=== PATIENT | male | born 1985 | race Caucasian/White ===

== ENCOUNTER 2016-06-27 02:53 | Emergency (ER) | payer SELFPAY ==
[~2016-06-27] VITALS: Ht 177.8 cm; Wt 99.8 kg
[~2016-06-27 02:53] MED LIST: FOLI1TAB16 PO; METO25TA4 PO; QUET200T PO; THIA100T8 PO; VENTOLIN HFA18 GM INH
[2016-06-27 03:53] LABS: BASO # 0.1 x10^3/uL (0.0-0.2); BASO % 2 % (0-3); EOS % 3 % (0-3); HEMATOCRIT 45.2 % (39.0-53.0); HEMOGLOBIN 14.4 g/dL (13.0-17.5); LYMPH # 2.1 x10^3/uL (1.0-4.8); LYMPH % 42 % (24-48); MEAN CORPUSCULAR HEMOGLOBIN 24 pg (25-35); MEAN CORPUSCULAR HGB CONC 32 g/dL (31-37); MEAN CORPUSCULAR VOLUME 76 fL (79-100); MONO % 10 % (0-9); NEUT % 43 % (31-73); PLATELET COUNT 392 x10^3/uL (140-400); RED BLOOD COUNT 5.96 x10^6/uL (4.30-5.70); RED CELL DISTRIBUTION WIDTH 20.7 % (11.5-14.5); WHITE BLOOD COUNT 4.9 x10^3/uL (4.0-11.0)
[2016-06-27 03:55] LABS: BILIRUBIN,URINE NEGATIVE (NEG); GLUCOSE,URINE NEGATIVE (NEG); NITRITE,URINE NEGATIVE (NEG); PH,URINE 6.5; PROTEIN,URINE NEGATIVE (NEG-TRACE); UROBILINOGEN,URINE 0.2 mg/dL (0.2 mg/dL)
[2016-06-27] MEDS ORDERED: LIDO:MAALOX:DONNATAL 1:1:1 15 ML SINGLE DOSE SWSW ONE (04:00)
[2016-06-27] MEDS ORDERED: PANTOPRAZOLE IV PUSH 40 MG VIAL. IVP ONE (04:00)
[2016-06-27] MEDS ORDERED: ONDANSETRON PF 4 MG/2 ML VIAL. IV ONE (04:00)
[2016-06-27] MEDS ORDERED: IV NORMAL SALINE 1000ML BAG 1,000 ML IV SCH (04:00)
[2016-06-27] MEDS: MORPHINE SULFATE 4 MG/ML DISP.SYRIN. IV/SQ PRN ×3 (04:04→04:46)
[2016-06-27 04:07] LABS: BACTERIA,URINE 0 /HPF (0-FEW); SQUAMOUS EPITHELIAL CELL,UR OCC /LPF; WBC,URINE OCC /HPF (0-4)
[2016-06-27 04:12] LABS: CALCIUM 9.1 mg/dL (8.5-10.1); CREATININE 0.9 mg/dL (0.7-1.3); GFR 99.1; POTASSIUM 4.7 mmol/L (3.5-5.1)
[2016-06-27 04:18] LABS: TOTAL BILIRUBIN 0.3 mg/dL (0.2-1.0); TOTAL PROTEIN 7.9 g/dL (6.4-8.2)
[2016-06-27 04:28] LABS: CKMB INDEX 0.7 % (0-4); CKMB MASS 0.7 ng/mL (0.0-3.6)
--- NOTE | 2016-06-27 05:03 | PHYS DOC ---
Past Medical History Past Medical History: GERD Additional Past Medical Histor: hemorrhoid, barretts esophagous Past Surgical History: Other Additional Past Surgical Histo: hemorrhoidectomy, left ankle, left collar bone Alcohol Use: Heavy Drug Use: Amphetamine, Benzodiazepine, Cocaine, Heroin, Marijuana, Methamphetamine, Opiates Adult General Chief Complaint Chief Complaint: NAUSEA/VOMITING/DIARRHA HPI HPI Patient is a 31 year old male who presents with complaint of nausea, vomiting, abdominal pain, and right-sided chest pain. The patient states that his symptoms have been present for the past week. Patient states that he has history of Mc's esophagus and is on twice daily omeprazole therapy. Patient also has history of polysubstance abuse and alcoholism. Patient states that he drank a large amount of vodka prior to symptom onset. Patient states that he tried to treat his symptoms at home with omeprazole, however the patient has not been able to tolerate any oral medications over the past several days. The patient states that he has been having worsening right-sided chest pain after having multiple episodes of vomiting. Patient rates pain currently as 8 out of 10. Patient denies any hematemesis or bloody stools. Review of Systems Review of Systems Constitutional: Denies fever or chills [] Eyes: Denies change in visual acuity, redness, or eye pain [] HENT: Denies nasal congestion or sore throat [] Respiratory: Denies cough or shortness of breath [] Cardiovascular: Right-sided chest pain [] GI: Abdominal pain, nausea, vomiting [] : Denies dysuria or hematuria [] Musculoskeletal: Denies back pain or joint pain [] Integument: Denies rash or skin lesions [] Neurologic: Denies headache, focal weakness or sensory changes [] Endocrine: Denies polyuria or polydipsia [] Current Medications Current Medications Current Medications Medications (Trade) Dose Ordered Sig/Khadijah Start Time Stop Time Status Last Admin Dose Admin Al Hydroxide/Mg Hydroxide (Mylanta Plus Xs) 30 ml 1X ONCE 06/27/16 05:30 06/27/16 05:32 DC 06/27/16 05:28 30 ML Morphine Sulfate 4 mg 4 mg PRN Q15MIN PRN 06/27/16 03:30 06/28/16 03:29 06/27/16 04:46 4 MG Multi-Ingredient Mouthwash/Gargle (Gi Cocktail Single Dose) 15 ml 1X ONCE 06/27/16 04:00 06/27/16 04:01 DC 06/27/16 03:58 15 ML Ondansetron HCl (Zofran) 4 mg 1X ONCE 06/27/16 04:00 06/27/16 04:01 DC 06/27/16 03:50 4 MG Pantoprazole Sodium (Protonix Vial) 40 mg 1X ONCE 06/27/16 04:00 06/27/16 04:01 DC 06/27/16 03:55 40 MG Sodium Chloride (Iv Sodium Chloride 0.9% 1000ml Bag) 1,000 ml @ 1,000 mls/hr Q1H 06/27/16 04:00 06/27/16 04:59 DC 06/27/16 04:01 1,000 MLS/HR Allergies Allergies Allergies Coded Allergies Type Severity Reaction Last Updated Verified No Known Drug Allergies 01/26/16 No Physical Exam Physical Exam Constitutional: Alert, afebrile, actively vomiting. [] HENT: Normocephalic, atraumatic, bilateral external ears normal, oropharynx moist, no oral exudates, nose normal. [] Eyes: PERRLA, EOMI, conjunctiva normal, no discharge. [] Neck: Normal range of motion, no tenderness, supple, no stridor. [] Cardiovascular: Tachycardia, regular rhythm, no murmur [] Lungs & Thorax: Bilateral breath sounds clear to auscultation , right-sided chest wall tenderness to palpation causing reproducible pain[] Abdomen: Bowel sounds normal, soft, epigastric tenderness palpation, no masses, no pulsatile masses. [] Skin: Warm, dry, no erythema, no rash. [] Back: No tenderness, no CVA tenderness. [] Extremities: No tenderness, no cyanosis, no clubbing, ROM intact, no edema. [] Neurologic: Alert and oriented X 3, normal motor function, normal sensory function, no focal deficits noted. [] Current Patient Data Vital Signs Vital Signs Date Time Temp Pulse Resp B/P Pulse Ox O2 Delivery O2 Flow Rate FiO2 06/27/16 04:46 24 97 06/27/16 04:00 104 132/100 Room Air 06/27/16 03:10 98.0 98.0 Lab Values Laboratory Tests Test 06/27/16 03:22 06/27/16 03:45 White Blood Count 4.9x10^3/uL (4.0-11.0) Red Blood Count 5.96x10^6/uL (4.30-5.70) H Hemoglobin 14.4g/dL (13.0-17.5) Hematocrit 45.2% (39.0-53.0) Mean Corpuscular Volume 76fL (79-100) L Mean Corpuscular Hemoglobin 24pg (25-35) L Mean Corpuscular Hemoglobin Concent 32g/dL (31-37) Red Cell Distribution Width 20.7% (11.5-14.5) H Platelet Count 392x10^3/uL (140-400) Neutrophils (%) (Auto) 43% (31-73) Lymphocytes (%) (Auto) 42% (24-48) Monocytes (%) (Auto) 10% (0-9) H Eosinophils (%) (Auto) 3% (0-3) Basophils (%) (Auto) 2% (0-3) Neutrophils # (Auto) 2.1x10^3uL (1.8-7.7) Lymphocytes # (Auto) 2.1x10^3/uL (1.0-4.8) Monocytes # (Auto) 0.5x10^3/uL (0.0-1.1) Eosinophils # (Auto) 0.1x10^3/uL (0.0-0.7) Basophils # (Auto) 0.1x10^3/uL (0.0-0.2) Platelet Estimate Pending Sodium Level 144mmol/L (136-145) Potassium Level 4.7mmol/L (3.5-5.1) Chloride Level 105mmol/L (98-107) Carbon Dioxide Level 24mmol/L (21-32) Anion Gap 15 (6-14) H Blood Urea Nitrogen 11mg/dL (8-26) Creatinine 0.9mg/dL (0.7-1.3) Estimated GFR (Cockcroft-Gault) 99.1 BUN/Creatinine Ratio 12 (6-20) Glucose Level 122mg/dL (70-99) H Calcium Level 9.1mg/dL (8.5-10.1) Total Bilirubin 0.3mg/dL (0.2-1.0) Aspartate Amino Transferase (AST) 44U/L (15-37) H Alanine Aminotransferase (ALT) 45U/L (16-63) Alkaline Phosphatase 113U/L (46-116) Creatine Kinase 97U/L (39-308) Creatine Kinase MB (Mass) 0.7ng/mL (0.0-3.6) Creatine Kinase MB Relative Index 0.7% (0-4) Troponin I Quantitative < 0.017ng/mL (0.000-0.055) Total Protein 7.9g/dL (6.4-8.2) Albumin 4.0g/dL (3.4-5.0) Albumin/Globulin Ratio 1.0 (1.0-1.7) Lipase 88U/L (73-393) Urine Collection Type Unknown Urine Color Yellow Urine Clarity Clear Urine pH 6.5 Urine Specific [place] 1.020 Urine Protein Negativemg/dL (NEG-TRACE) Urine Glucose (UA) Negativemg/dL (NEG) Urine Ketones (Stick) Tracemg/dL (NEG) Urine Blood Negative (NEG) Urine Nitrite Negative (NEG) Urine Bilirubin Negative (NEG) Urine Urobilinogen Dipstick 0.2mg/dL (0.2 mg/dL) Urine Leukocyte Esterase Negative (NEG) Urine RBC 3-5/HPF (0-2) Urine WBC Occ/HPF (0-4) Urine Squamous Epithelial Cells Occ/LPF Urine Bacteria 0/HPF (0-FEW) Urine Hyaline Casts Few/HPF Urine Mucus Marked/LPF Laboratory Tests 06/27/16 03:22 Laboratory Tests 06/27/16 03:22 EKG EKG Interpreted by me: Heart rate 105, sinus tachycardia, normal intervals, normal axis, no acute ST/T-wave abnormalities present [] Radiology/Procedures Radiology/Procedures 3 view acute abdominal series interpreted by me: No pulmonary infiltrates or effusions, nonobstructive bowel gas pattern, no free air under the diaphragm. [] Course & Med Decision Making Course & Med Decision Making Pertinent Labs and Imaging studies reviewed. (See chart for details) Patient was given IV fluids, Zofran, Protonix, GI cocktail, and morphine. On reevaluation, patient's symptoms have improved at this time. 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 Patient states that he is set up for endoscopy in the next 10 days. The patient was prescribed Nicholson and Zofran for continued control symptoms. Patient was counseled on refraining from any further alcohol use as this will very likely continue to cause worsening symptoms to the patient's condition. Advised return emergency department for any worsening symptoms. Patient voiced understanding and in agreement with treatment plan. Dragon Disclaimer Dragon Disclaimer This electronic medical record was generated, in whole or in part, using a voice recognition dictation system. Departure Departure Impression: Primary Impression: Epigastric abdominal pain Disposition: HOME, SELF-CARE Condition: IMPROVED Referrals: NO PCP (PCP) Patient Instructions: Abdominal Pain Additional Instructions: Follow-up with your help desk intern in the next 7 days. Return to the emergency department for any worsening symptoms. Scripts Ondansetron Hcl (Zofran)4 Mg Tablet1 Tab PO Q6HRS PRN NAUSEA/VOMITING #20 TAB Prov:FRANCISCO ELLSWORTH MD 06/27/16 Hydrocodone/Apap 5-325 (Nicholson 5-325 Tablet)1 Each Tablet1 Tab PO Q6HRS PRN PAIN #20 TAB Prov:FRANCISCO ELLSWORTH MD 06/27/16 FRANCISCO ELLSWORTH MD Jun 27, 2016 05:03
[2016-06-27] MEDS ORDERED: MAG HYDROX/AL HYDROX/SIMETH 30 ML ORAL.SUSP PO ONE (05:30)
[2016-06-27] MEDS ORDERED: HYDR-971 PO (05:38)
[2016-06-27] MEDS ORDERED: ONDA4TAB7 PO (05:38)
[2016-06-27 06:00] VITALS: BP 134/85
--- NOTE | 2016-06-27 06:32 | EKG ---
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
--- NOTE | 2016-06-27 07:34 | RAD ---
Indication abdominal pain and vomiting. A single view of the chest was obtained as well as flat and upright films of the abdomen. Note is made of a similar series of films 05/23/2016. The heart and pulmonary vessels appear normal. The lungs are clear. There is no pleural fluid or pneumothorax. The appearance of the chest is not changed substantially relative to the previous exam. There is no free air. The abdominal gas pattern is normal. No organomegaly or abnormal calculi are seen. IMPRESSION: No acute finding seen in the chest or abdomen on plain films
[2016-06-27 11:43] LABS: ANISOCYTOSIS MOD; HYPOCHROMIA SLIGHT
[2016-06-27 11:44] LABS: OVALOCYTES OCC
[2016-06-27 13:53] LABS: PLT ESTIMATE ADEQUATE (ADEQUATE)
[2016-07-01] MEDS ORDERED: SUCR1TAB29 PO (03:25)
[2016-07-01] MEDS ORDERED: FAMO-63 PO (03:25)
== END 2016-06-27 06:00 | disposition home or self-care (01) ==
LOC: ER 02:53
DX: R10.13 Epigastric pain (principal); R11.2 Nausea with vomiting, unspecified; R00.0 Tachycardia, unspecified; R07.89 Other chest pain; K21.9 Gastro-esophageal reflux disease without esophagitis; F15.10 Other stimulant abuse, uncomplicated; F13.10 Sedative, hypnotic or anxiolytic abuse, uncomplicated; F14.10 Cocaine abuse, uncomplicated; F11.10 Opioid abuse, uncomplicated; F12.10 Cannabis abuse, uncomplicated; F10.10 Alcohol abuse, uncomplicated; Z87.19 Personal history of other diseases of the digestive system
CPT/HCPCS: 36415; 74022; 80053; 81001; 82553; 83690; 84484; 85007; 85027; 93005; 96361; 96374; 96375; 96376; 99285; C9113; J2270; J2405; J7030

== ENCOUNTER 2016-07-22 06:14 | Emergency (ER) | payer SELFPAY ==
[~2016-07-22] VITALS: Ht 177.8 cm; Wt 99.8 kg
[~2016-07-22 06:14] MED LIST changes: +FAMO-63 PO; +HYDR-971 PO; +ONDA4TAB7 PO; +SUCR1TAB29 PO
[2016-07-22] MEDS ORDERED: AMMONIA AROMATIC 15% INHALANT AMPUL. ONE (06:15)
[2016-07-22] MEDS ORDERED: NALOXONE 0.4 MG/ML VIAL. ONE (06:15)
[2016-07-22] MEDS ORDERED: IV NORMAL SALINE 1000ML BAG 1,000 ML IV ONE (06:30)
[2016-07-22] MEDS ORDERED: NALOXONE 0.4 MG/ML VIAL. IV ONE (06:30)
[2016-07-22 06:46] LABS: CALCIUM 8.6 mg/dL (8.5-10.1); CREATININE 0.7 mg/dL (0.7-1.3); GFR 132.4; POTASSIUM 4.1 mmol/L (3.5-5.1)
[2016-07-22 06:47] LABS: BASO # 0.1 x10^3/uL (0.0-0.2); BASO % 1 % (0-3); EOS % 5 % (0-3); HEMATOCRIT 43.2 % (39.0-53.0); HEMOGLOBIN 13.9 g/dL (13.0-17.5); LYMPH % 44 % (24-48); MEAN CORPUSCULAR HEMOGLOBIN 25 pg (25-35); MEAN CORPUSCULAR HGB CONC 32 g/dL (31-37); MEAN CORPUSCULAR VOLUME 79 fL (79-100); MONO % 12 % (0-9); NEUT % 38 % (31-73); PLATELET COUNT 369 x10^3/uL (140-400); RED BLOOD COUNT 5.46 x10^6/uL (4.30-5.70); RED CELL DISTRIBUTION WIDTH 20.3 % (11.5-14.5); WHITE BLOOD COUNT 4.5 x10^3/uL (4.0-11.0)
--- NOTE | 2016-07-22 06:50 | EKG ---
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
--- NOTE | 2016-07-22 06:50 | RAD ---
PROCEDURE CT head without contrast. HISTORY Altered mental status, unresponsive. Drug and ETOH use. TECHNIQUE Helical CT imaging of the brain is performed without IV contrast. PQRS: One or more the following individualized dose reduction techniques were utilized for the study: 1. Automated exposure control. 2. Adjustment of the mA and/or kV according to patient size. 3. Use of iterative reconstruction technique. COMPARISON None. FINDINGS There is no midline shift or mass effect. No extra-axial fluid collection or intraparenchymal hemorrhage. Quezada-white matter differentiation is preserved. Ventricles and sulci are normal for patient age. The visualized paranasal sinuses and mastoid air cells are clear. The globes and orbits appear intact. No acute calvarial abnormality. IMPRESSION No acute intracranial abnormality. Electronically signed by: Rodriguez Funk MD (Jul 22, 2016 06:49:27)
[2016-07-22 06:51] LABS: ALBUMIN 3.7 g/dL (3.4-5.0); ETHANOL 224 mg/dL (0-10); MAGNESIUM 2.1 mg/dL (1.8-2.4); TOTAL BILIRUBIN 0.1 mg/dL (0.2-1.0); TOTAL PROTEIN 7.4 g/dL (6.4-8.2)
[2016-07-22] MEDS ORDERED: MVI, ADULT NO.4 WITH VIT K 10 ML, FOLIC ACID 1 MG, THIAMINE 100 MG in IV NORMAL SALINE ... IV ONE ×4 (07:00)
[2016-07-22] MEDS ORDERED: MVI, ADULT NO.4 WITH VIT K 10 ML, FOLIC ACID 1 MG, THIAMINE 100 MG in IV NORMAL SALINE ... IV SCH ×4 (07:00)
--- NOTE | 2016-07-22 07:11 | RAD ---
Portable chest, 07/22/2016: History: Syncope The depth of inspiration is suboptimal. The heart is at the upper limits of normal in size. There is a retrocardiac mass compatible with a small hiatal hernia. The pulmonary vascularity is normal. No pulmonary infiltrates are seen. There is no evidence of pleural fluid. IMPRESSION: 1. Small hiatal hernia. 2. Suboptimal inspiration.
[2016-07-22 07:20] VITALS: BP 134/102
--- NOTE | 2016-07-22 07:22 | PHYS DOC ---
Past Medical History Past Medical History: Alcoholism, GERD Additional Past Medical Histor: hemorrhoid, barretts esophagous Past Surgical History: Other Additional Past Surgical Histo: hemorrhoidectomy, left ankle, left collar bone Alcohol Use: Heavy Drug Use: Amphetamine, Benzodiazepine, Cocaine, Heroin, Marijuana, Methamphetamine, Opiates Adult General Chief Complaint Chief Complaint: ALTERED MENTAL STATUS HPI HPI Patient is a 31 year old male who presents with altered mental status. The patient was brought to the emergency department by his father due to complaints of abdominal pain. The patient however became unresponsive in route and patient was brought to the trauma bay in a stretcher. Patient has reported history of alcohol and drug abuse. The patient does not provide any history currently. Father states that the patient has had problems with abdominal pain due to use of alcohol. Attempts at sternal rub and ammonium salts cause patient only to open eyes and have slight grimace. Review of Systems Review of Systems Unable to obtain Current Medications Current Medications Current Medications Medications (Trade) Dose Ordered Sig/Khadijah Start Time Stop Time Status Last Admin Dose Admin Multi-Ingredient Mouthwash/Gargle (Gi Cocktail Single Dose) 15 ml 1X ONCE 07/22/16 07:30 07/22/16 07:31 DC 07/22/16 07:26 15 ML Multivitamins/ Minerals 10 ml/ Folic Acid 1 mg/ Thiamine HCl 100 mg/Sodium Chloride 1,011.2 ml @ 1,000 mls/ hr Q1H 07/22/16 07:00 07/22/16 07:00 DC Multivitamins/ Minerals/Folic Acid/Thiamine HCl/ Sodium Chloride (Infuvite Adult/ Iv Sodium Chloride 0.9% 1000ml Bag) 1,011.2 ml @ 1,000 mls/ hr ONCE ONCE 07/22/16 07:00 07/22/16 08:00 DC 07/22/16 07:07 1,000 MLS/HR Naloxone HCl 0.4 mg 0.4 mg 1X ONCE 07/22/16 06:30 07/22/16 06:31 DC 07/22/16 06:18 0.4 MG Sodium Chloride 1,000 ml @ 1,000 mls/hr 1X ONCE 07/22/16 06:30 07/22/16 07:29 DC 07/22/16 06:55 1,000 MLS/HR Allergies Allergies Allergies Coded Allergies Type Severity Reaction Last Updated Verified No Known Drug Allergies 01/26/16 No Physical Exam Physical Exam Constitutional: Obtunded, minimal response to painful stimulus, protecting airway, attempts to close eyes when forced open. [] HENT: Normocephalic, atraumatic, bilateral external ears normal, oropharynx dry , no oral exudates, nose normal. [] Eyes: PERRLA, conjunctiva normal, no discharge. [] Neck: Normal range of motion, no tenderness, supple, no stridor. [] Cardiovascular:Heart rate regular rhythm, no murmur [] Lungs & Thorax: Bilateral breath sounds clear to auscultation [] Abdomen: Bowel sounds normal, soft, no tenderness, no masses, no pulsatile masses. [] Skin: Warm, dry, no erythema, no rash. [] Back: No tenderness, no CVA tenderness. [] Extremities: No tenderness, no cyanosis, no clubbing, ROM intact, no edema. [] Neurologic: Obtunded, does not follow commands, minimal response to painful stimulus, deep tendon reflexes intact. [] Current Patient Data Vital Signs Vital Signs Date Time Temp Pulse Resp B/P Pulse Ox O2 Delivery O2 Flow Rate FiO2 07/22/16 07:20 82 20 134/102 97 07/22/16 06:32 97.3 Room Air 97.3 Lab Values Laboratory Tests Test 07/22/16 06:17 07/22/16 06:22 07/22/16 06:25 Glucose (Fingerstick) 114mg/dL (70-99) H White Blood Count 4.5x10^3/uL (4.0-11.0) Red Blood Count 5.46x10^6/uL (4.30-5.70) Hemoglobin 13.9g/dL (13.0-17.5) Hematocrit 43.2% (39.0-53.0) Mean Corpuscular Volume 79fL (79-100) Mean Corpuscular Hemoglobin 25pg (25-35) Mean Corpuscular Hemoglobin Concent 32g/dL (31-37) Red Cell Distribution Width 20.3% (11.5-14.5) H Platelet Count 369x10^3/uL (140-400) Neutrophils (%) (Auto) 38% (31-73) Lymphocytes (%) (Auto) 44% (24-48) Monocytes (%) (Auto) 12% (0-9) H Eosinophils (%) (Auto) 5% (0-3) H Basophils (%) (Auto) 1% (0-3) Neutrophils # (Auto) 1.7x10^3uL (1.8-7.7) L Lymphocytes # (Auto) 2.0x10^3/uL (1.0-4.8) Monocytes # (Auto) 0.5x10^3/uL (0.0-1.1) Eosinophils # (Auto) 0.2x10^3/uL (0.0-0.7) Basophils # (Auto) 0.1x10^3/uL (0.0-0.2) Platelet Estimate Pending Sodium Level 146mmol/L (136-145) H Potassium Level 4.1mmol/L (3.5-5.1) Chloride Level 108mmol/L (98-107) H Carbon Dioxide Level 26mmol/L (21-32) Anion Gap 12 (6-14) Blood Urea Nitrogen 8mg/dL (8-26) Creatinine 0.7mg/dL (0.7-1.3) Estimated GFR (Cockcroft-Gault) 132.4 BUN/Creatinine Ratio 11 (6-20) Glucose Level 104mg/dL (70-99) H Lactic Acid Level 1.4mmol/L (0.4-2.0) Calcium Level 8.6mg/dL (8.5-10.1) Magnesium Level 2.1mg/dL (1.8-2.4) Total Bilirubin 0.1mg/dL (0.2-1.0) L Aspartate Amino Transferase (AST) 25U/L (15-37) Alanine Aminotransferase (ALT) 30U/L (16-63) Alkaline Phosphatase 92U/L (46-116) Ammonia 49mcmol/L (11-34) H Total Protein 7.4g/dL (6.4-8.2) Albumin 3.7g/dL (3.4-5.0) Albumin/Globulin Ratio 1.0 (1.0-1.7) Salicylates Level < 2.8mg/dL (2.8-20.0) L Salicylate Last Dose Date Unknown Salicylate Last Dose Time Unknown Acetaminophen Level 3.55mcg/ml (10-30) L Acetaminophen Last Dose Date Unknown Acetaminophen Last Dose Time Unknown Ethyl Alcohol Level 224mg/dL (0-10) H Urine Collection Type Unknown Urine Color Yellow Urine Clarity Clear Urine pH 6.0 Urine Specific [place] 1.025 Urine Protein 30mg/dL (NEG-TRACE) Urine Glucose (UA) Negativemg/dL (NEG) Urine Ketones (Stick) Negativemg/dL (NEG) Urine Blood Large (NEG) Urine Nitrite Negative (NEG) Urine Bilirubin Negative (NEG) Urine Urobilinogen Dipstick 0.2mg/dL (0.2 mg/dL) Urine Leukocyte Esterase Negative (NEG) Urine RBC 20-40/HPF (0-2) Urine WBC 0/HPF (0-4) Urine Squamous Epithelial Cells Occ/LPF Urine Bacteria 0/HPF (0-FEW) Urine Hyaline Casts Few/HPF Urine Mucus Marked/LPF Urine Opiates Screen Neg (NEG) Urine Methadone Screen Neg (NEG) Urine Barbiturates Neg (NEG) Urine Phencyclidine Screen Neg (NEG) Urine Amphetamine/Methamphetamine Neg (NEG) Urine Benzodiazepines Screen Neg (NEG) Urine Cocaine Screen Neg (NEG) Urine Cannabinoids Screen Pos (NEG) Urine Ethyl Alcohol Pos (NEG) Laboratory Tests 07/22/16 06:22 Laboratory Tests 07/22/16 06:22 EKG EKG Interpreted by me: Heart rate 91, sinus rhythm, normal intervals, normal axis, no acute ST/T-wave abnormalities present [] Radiology/Procedures Radiology/Procedures [facility] [address] [place] [address] IMAGING REPORT Signed PATIENT: EDDA GREEN ACCOUNT: [id number] : 1985 LOCATION: ER AGE: 31 SEX: M EXAM STATUS: REG ER ORD. PHYSICIAN: FRANCISCO ELLSWORTH MD REASON: syncope, rule out acute cardiopulmonary abnormality PROCEDURE: PORTABLE CHEST 1V Portable chest, 07/22/2016: History: Syncope The depth of inspiration is suboptimal. The heart is at the upper limits of normal in size. There is a retrocardiac mass compatible with a small hiatal hernia. The pulmonary vascularity is normal. No pulmonary infiltrates are seen. There is no evidence of pleural fluid. IMPRESSION: 1. Small hiatal hernia. 2. Suboptimal inspiration. DICTATED and SIGNED BY: SUMA MAJANO MD DATE: 07/22/16 08 CC: FRANCISCO ELLSWORTH MD; NO PCP ~ [facility] [address] [place] [address] IMAGING REPORT Signed PATIENT: EDDA GREEN ACCOUNT: [id number] : 1985 LOCATION: ER AGE: 31 SEX: M EXAM STATUS: PRE ER ORD. PHYSICIAN: FRANCISCO ELLSWORTH MD REASON: altered mental status PROCEDURE: HEAD WO CONTRAST PROCEDURE CT head without contrast. HISTORY Altered mental status, unresponsive. Drug and ETOH use. TECHNIQUE Helical CT imaging of the brain is performed without IV contrast. PQRS: One or more the following individualized dose reduction techniques were utilized for the study: 1. Automated exposure control. 2. Adjustment of the mA and/or kV according to patient size. 3. Use of iterative reconstruction technique. COMPARISON None. FINDINGS There is no midline shift or mass effect. No extra-axial fluid collection or intraparenchymal hemorrhage. Quezada-white matter differentiation is preserved. Ventricles and sulci are normal for patient age. The visualized paranasal sinuses and mastoid air cells are clear. The globes and orbits appear intact. No acute calvarial abnormality. IMPRESSION No acute intracranial abnormality. Electronically signed by: Rodriguez Funk MD (Jul 22, 2016 06:49:27) DICTATED and SIGNED BY: RODRIGUEZ FUNK MD DATE: 07/22/16 0649 CC: FRANCISCO ELLSWORTH MD; NO PCP ~ [] Course & Med Decision Making Course & Med Decision Making Pertinent Labs and Imaging studies reviewed. (See chart for details) The patient underwent CT and chest x-ray imaging which did not reveal any acute abnormalities. The patient spontaneously awoke in the emergency department and requested GI cocktail for treatment of patient's abdominal pain. On chart review , this patient has been seen on multiple visits for treatment of abdominal pain. Alcohol level was 224. I spent approximately 10-15 minutes providing counseling to both patient and patient's father regarding discontinuing use of alcohol as this is the primary cause of patient's symptoms and explained to both the patient and his father that this will continue to be destructive to the patient's well-being. Dragon Disclaimer Dragon Disclaimer This electronic medical record was generated, in whole or in part, using a voice recognition dictation system. Departure Departure Impression: Primary Impression: Epigastric abdominal pain Disposition: HOME, SELF-CARE Condition: IMPROVED Referrals: NO PCP (PCP) Patient Instructions: Abdominal Pain (Nonspecific), Alcohol Problems Additional Instructions: Your abdominal pain stems from your daily heavy alcohol use. This will continue to cause you harmful symptoms not only as it pertains to your abdomen but your overall well-being. It is strongly recommended that you seek help to discontinue use of alcohol. Continue on twice daily Pepcid for your gastritis. Return to the emergency department for any worsening symptoms. FRANCISCO ELLSWORTH MD Jul 22, 2016 07:22
[2016-07-22] MEDS ORDERED: LIDO:MAALOX:DONNATAL 1:1:1 15 ML SINGLE DOSE SWSW ONE (07:30)
[2016-07-22 07:42] LABS: BARBITURATES NEG (NEG); BENZODIAZEPINES NEG (NEG); CANNABINOIDS POS (NEG); COCAINE NEG (NEG); METHADONE NEG (NEG); OPIATES NEG (NEG); PHENCYCLIDINE NEG (NEG)
[2016-07-22 07:43] LABS: ETHANOL, URINE POS (NEG)
[2016-07-22 07:53] LABS: BILIRUBIN,URINE NEGATIVE (NEG); GLUCOSE,URINE NEGATIVE (NEG); NITRITE,URINE NEGATIVE (NEG); PROTEIN,URINE 30 mg/dL (NEG-TRACE); UROBILINOGEN,URINE 0.2 mg/dL (0.2 mg/dL)
[2016-07-22 08:13] LABS: BACTERIA,URINE 0 /HPF (0-FEW); RBC,URINE 20-40 /HPF (0-2); SQUAMOUS EPITHELIAL CELL,UR OCC /LPF; WBC,URINE 0 /HPF (0-4)
[2016-07-22 08:31] LABS: PLT ESTIMATE ADEQUATE (ADEQUATE)
[2016-07-22 08:32] LABS: ANISOCYTOSIS MOD
== END 2016-07-22 08:40 | disposition home or self-care (01) ==
LOC: ER 06:14
DX: R10.13 Epigastric pain (principal); R41.82 Altered mental status, unspecified; K21.9 Gastro-esophageal reflux disease without esophagitis; F15.10 Other stimulant abuse, uncomplicated; F14.10 Cocaine abuse, uncomplicated; F10.10 Alcohol abuse, uncomplicated; F12.10 Cannabis abuse, uncomplicated; F11.10 Opioid abuse, uncomplicated; F19.10 Other psychoactive substance abuse, uncomplicated
CPT/HCPCS: 36415; 51702; 70450; 71010; 80053; 81001; 82140; 82947; 83605; 83735; 85007; 85027; 93005; 96365; 96374; 99285; G0480; G0481; G6038; J2310; J7030; 80196

== ENCOUNTER 2016-08-02 08:16 | Inpatient (IN) | payer SELFPAY ==
[~2016-08-02] VITALS: Ht 177.8 cm; Wt 100.7 kg
[2016-08-02] MEDS ORDERED: LORAZEPAM 1 MG TABLET. PO SCH (09:15)
[2016-08-02] MEDS ORDERED: MORPHINE SULFATE 2 MG/ML DISP.SYRIN. IV PRN (09:15)
[2016-08-02] MEDS ORDERED: ONDANSETRON PF 4 MG/2 ML VIAL. IV PRN (09:15)
[2016-08-02] MEDS: LORAZEPAM 1 MG TABLET. PO SCH ×3 (09:20→21:15)
[2016-08-02 09:28] LABS: BASO # 0.1 x10^3/uL (0.0-0.2); BASO % 2 % (0-3); EOS % 4 % (0-3); HEMATOCRIT 40.6 % (39.0-53.0); HEMOGLOBIN 13.3 g/dL (13.0-17.5); LYMPH # 1.9 x10^3/uL (1.0-4.8); LYMPH % 39 % (24-48); MEAN CORPUSCULAR HEMOGLOBIN 25 pg (25-35); MEAN CORPUSCULAR HGB CONC 33 g/dL (31-37); MEAN CORPUSCULAR VOLUME 78 fL (79-100); MONO % 12 % (0-9); NEUT % 44 % (31-73); PLATELET COUNT 385 x10^3/uL (140-400); RED BLOOD COUNT 5.21 x10^6/uL (4.30-5.70); RED CELL DISTRIBUTION WIDTH 20.5 % (11.5-14.5); WHITE BLOOD COUNT 4.8 x10^3/uL (4.0-11.0)
[2016-08-02] MEDS ORDERED: LIDO:MAALOX:DONNATAL 1:1:1 15 ML SINGLE DOSE SWSW ONE ×2 (09:30→15:00)
[2016-08-02] MEDS ORDERED: MVI, ADULT NO.4 WITH VIT K 10 ML, FOLIC ACID 1 MG, THIAMINE 100 MG in IV DEXTROSE 5%-LA... IV ONE ×4 (09:30)
[2016-08-02 09:36] LABS: BILIRUBIN,URINE NEGATIVE (NEG); GLUCOSE,URINE NEGATIVE (NEG); NITRITE,URINE NEGATIVE (NEG); PROTEIN,URINE NEGATIVE (NEG-TRACE); UROBILINOGEN,URINE 0.2 mg/dL (0.2 mg/dL)
[2016-08-02 09:53] LABS: ANION GAP 12 (6-14); BLOOD UREA NITROGEN 9 mg/dL (8-26); CALCIUM 8.6 mg/dL (8.5-10.1); CARBON DIOXIDE 25 mmol/L (21-32); CHLORIDE 108 mmol/L (98-107); CREATININE 0.8 mg/dL (0.7-1.3); GFR 113.5; GLUCOSE 117 mg/dL (70-99); POTASSIUM 3.7 mmol/L (3.5-5.1); SODIUM 145 mmol/L (136-145)
[2016-08-02 09:53] LABS: BARBITURATES NEG (NEG); BENZODIAZEPINES NEG (NEG); CANNABINOIDS NEG (NEG); COCAINE NEG (NEG); METHADONE NEG (NEG); OPIATES NEG (NEG); PHENCYCLIDINE NEG (NEG)
[2016-08-02 09:55] LABS: BACTERIA,URINE 0 /HPF (0-FEW); RBC,URINE 0 /HPF (0-2); SQUAMOUS EPITHELIAL CELL,UR OCC /LPF; WBC,URINE 0 /HPF (0-4)
[2016-08-02 09:56] LABS: ETHANOL, URINE POS (NEG)
[2016-08-02 09:57] LABS: ALBUMIN 3.6 g/dL (3.4-5.0); ALK PHOS 111 U/L (46-116); ALT (SGPT) 43 U/L (16-63); AST (SGOT) 43 U/L (15-37); DIRECT BILIRUBIN < 0.1 mg/dL (0.0-0.2); TOTAL BILIRUBIN 0.2 mg/dL (0.2-1.0); TOTAL PROTEIN 7.2 g/dL (6.4-8.2)
[2016-08-02 09:59] LABS: ETHANOL 250 mg/dL (0-10)
--- NOTE | 2016-08-02 10:19 | PHYS DOC ---
Past Medical History Past Medical History: Alcoholism, GERD Additional Past Medical Histor: hemorrhoid, barretts esophagous, drug use Past Surgical History: Other Additional Past Surgical Histo: hemorrhoidectomy, left ankle, left collar bone Alcohol Use: Heavy Drug Use: Amphetamine, Benzodiazepine, Cocaine, Heroin, Marijuana, Methamphetamine, Opiates Adult General Chief Complaint Chief Complaint: WITHDRAWL HPI HPI 31-year-old male presenting to the emergency department today after having seizure approximately 6 hours ago. He reports drinking approximately 2 L of vodka every day. Initially stated he did not want rehabilitation but after talking to him for a while he decided that he did want to stop drinking. He reports a history of alcohol withdrawal seizures including having one approximately 6 hours ago. He drinks since then a small amount of hard liquor. Onset today. Location brain. Duration intermittent. No alleviating factors. Nonradiating. Review of systems is negative for chest pain shortness of breath nausea vomiting fevers chills. He feels mildly anxious. All other review of systems is negative unless otherwise noted in history of present illness. Review of Systems Review of Systems SEE ABOVE. Current Medications Current Medications Current Medications Medications (Trade) Dose Ordered Sig/Khadijah Start Time Stop Time Status Last Admin Dose Admin Lorazepam (Ativan) 1 mg Q6H 08/02/16 09:15 08/03/16 15:16 08/02/16 09:20 1 MG Morphine Sulfate 2 mg PRN Q2HR PRN 08/02/16 09:15 08/03/16 09:14 Ondansetron HCl (Zofran) 4 mg PRN Q8HRS PRN 08/02/16 09:15 08/03/16 09:14 Allergies Allergies Allergies Coded Allergies Type Severity Reaction Last Updated Verified No Known Drug Allergies 01/26/16 No Physical Exam Physical Exam Constitutional: Well developed, well nourished, no acute distress, non-toxic appearance. HENT: Normocephalic, atraumatic, bilateral external ears normal, oropharynx moist, no oral exudates, nose normal. [] Eyes: PERRLA, EOMI, conjunctiva normal, no discharge. Neck: Normal range of motion, no tenderness, supple, no stridor. [] Cardiovascular:Heart rate regular rhythm, no murmur [] Lungs & Thorax: Bilateral breath sounds clear to auscultation Abdomen: Bowel sounds normal, soft, no tenderness, no masses, no pulsatile masses. [] Skin: Warm, dry, no erythema, no rash. Back: No tenderness, no CVA tenderness. [] Extremities: No tenderness, no cyanosis, no clubbing, ROM intact, no edema. Neurologic: Alert and oriented X 3, normal motor function, normal sensory function, no focal deficits noted. Psychologic: Affect normal, judgement normal, mood normal. [] Current Patient Data Vital Signs Vital Signs Date Time Temp Pulse Resp B/P Pulse Ox O2 Delivery O2 Flow Rate FiO2 08/02/16 08:34 98.1 100 20 146/98 96 Room Air 98.1 Lab Values Laboratory Tests Test 08/02/16 09:04 08/02/16 09:05 08/02/16 09:15 Sodium Level 145mmol/L (136-145) Potassium Level 3.7mmol/L (3.5-5.1) Chloride Level 108mmol/L (98-107) H Carbon Dioxide Level 25mmol/L (21-32) Anion Gap 12 (6-14) Blood Urea Nitrogen 9mg/dL (8-26) Creatinine 0.8mg/dL (0.7-1.3) Estimated GFR (Cockcroft-Gault) 113.5 Glucose Level 117mg/dL (70-99) H Calcium Level 8.6mg/dL (8.5-10.1) Total Bilirubin 0.2mg/dL (0.2-1.0) Direct Bilirubin < 0.1mg/dL (0.0-0.2) Aspartate Amino Transferase (AST) 43U/L (15-37) H Alanine Aminotransferase (ALT) 43U/L (16-63) Alkaline Phosphatase 111U/L (46-116) Total Protein 7.2g/dL (6.4-8.2) Albumin 3.6g/dL (3.4-5.0) Lipase 132U/L (73-393) White Blood Count 4.8x10^3/uL (4.0-11.0) Red Blood Count 5.21x10^6/uL (4.30-5.70) Hemoglobin 13.3g/dL (13.0-17.5) Hematocrit 40.6% (39.0-53.0) Mean Corpuscular Volume 78fL (79-100) L Mean Corpuscular Hemoglobin 25pg (25-35) Mean Corpuscular Hemoglobin Concent 33g/dL (31-37) Red Cell Distribution Width 20.5% (11.5-14.5) H Platelet Count 385x10^3/uL (140-400) Neutrophils (%) (Auto) 44% (31-73) Lymphocytes (%) (Auto) 39% (24-48) Monocytes (%) (Auto) 12% (0-9) H Eosinophils (%) (Auto) 4% (0-3) H Basophils (%) (Auto) 2% (0-3) Neutrophils # (Auto) 2.1x10^3uL (1.8-7.7) Lymphocytes # (Auto) 1.9x10^3/uL (1.0-4.8) Monocytes # (Auto) 0.6x10^3/uL (0.0-1.1) Eosinophils # (Auto) 0.2x10^3/uL (0.0-0.7) Basophils # (Auto) 0.1x10^3/uL (0.0-0.2) Platelet Estimate Pending Serum Osmolality 358mOsm/Kg (279-304) H Salicylates Level < 2.8mg/dL (2.8-20.0) L Salicylate Last Dose Date Salicylate Last Dose Time Acetaminophen Level < 2mcg/ml (10-30) L Acetaminophen Last Dose Date Acetaminophen Last Dose Time Ethyl Alcohol Level 250mg/dL (0-10) H Urine Collection Type Unknown Urine Color Yellow Urine Clarity Clear Urine pH 6.0 Urine Specific [place] 1.010 Urine Protein Negativemg/dL (NEG-TRACE) Urine Glucose (UA) Negativemg/dL (NEG) Urine Ketones (Stick) Negativemg/dL (NEG) Urine Blood Negative (NEG) Urine Nitrite Negative (NEG) Urine Bilirubin Negative (NEG) Urine Urobilinogen Dipstick 0.2mg/dL (0.2 mg/dL) Urine Leukocyte Esterase Negative (NEG) Urine RBC 0/HPF (0-2) Urine WBC 0/HPF (0-4) Urine Squamous Epithelial Cells Occ/LPF Urine Bacteria 0/HPF (0-FEW) Urine Opiates Screen Neg (NEG) Urine Methadone Screen Neg (NEG) Urine Barbiturates Neg (NEG) Urine Phencyclidine Screen Neg (NEG) Urine Amphetamine/Methamphetamine Neg (NEG) Urine Benzodiazepines Screen Neg (NEG) Urine Cocaine Screen Neg (NEG) Urine Cannabinoids Screen Neg (NEG) Urine Ethyl Alcohol Pos (NEG) Laboratory Tests 08/02/16 09:05 Laboratory Tests 08/02/16 09:04 EKG EKG [] Radiology/Procedures Radiology/Procedures [] Course & Med Decision Making Course & Med Decision Making Pertinent Labs and Imaging studies reviewed. (See chart for details) [] 31-year-old male presenting to the emergency department today desiring to be medically monitored during on-call withdrawal. He had a history of alcohol withdrawal seizures. Heart rate was 100. Blood pressure mildly elevated. Not shaking during examination. Otherwise vital signs were within normal limits. Blood work obtained. Oral Ativan given. CBC unremarkable. Urinalysis negative. Chemistry panel showed increased osmolality from alcohol and glucose. Patient does not have an osmolar gap. Acetaminophen and salicylate were negative. Patient was then admitted to our hospital for monitoring of alcohol withdrawal , further evaluation workup and care. Dragon Disclaimer Dragon Disclaimer This electronic medical record was generated, in whole or in part, using a voice recognition dictation system. Departure Departure Impression: Primary Impression: Alcohol drinker Additional Impressions: Alcohol withdrawal Alcohol withdrawal seizure Disposition: ADMITTED INPATIENT Admitting Physician: Rickey Osman Condition: STABLE Referrals: NO PCP (PCP) Problem Qualifiers NORBERTO FLORES MD Aug 02, 2016 10:19
[2016-08-02 10:45] VITALS: BP 146/103
[2016-08-02 10:45] LABS: ANISOCYTOSIS MOD; PLT ESTIMATE ADEQUATE (ADEQUATE)
[2016-08-02 11:19] VITALS: BP 146/103
--- NOTE | 2016-08-02 12:43 | PDOC1 ---
History and Physical Past Medical History Cardiovascular: No pertinent hx Pulmonary: Asthma CENTRAL NERVOUS SYSTEM: TIA GI: GERD, Hemorrhoids, Peptic Ulcer disease, Other Heme/Onc: No pertinent hx Hepatobiliary: No pertinent hx Psych: Other Rheumatologic: No pertinent hx Infectious disease: No pertinent hx Renal/: No pertinent hx Endocrine: No pertinent hx Past Surgical History Past Surgical History: Other Family History Family History: Coronary Artery Disease Social History ALCOHOL: heavy Drugs: Other Current Problem List Problem List Problems Medical Problems: (1) Alcohol drinker Status: Acute (2) Alcohol withdrawal Status: Acute (3) Alcohol withdrawal seizure Status: Acute Current Medications Current Medications Current Medications Medications (Trade) Dose Ordered Sig/Khadijah Start Time Stop Time Status Last Admin Dose Admin Lorazepam (Ativan) 1 mg Q6H 08/02/16 09:15 08/03/16 15:16 08/02/16 09:20 1 MG Morphine Sulfate 2 mg PRN Q2HR PRN 08/02/16 09:15 08/03/16 09:14 Multi-Ingredient Mouthwash/Gargle (Gi Cocktail Single Dose) 15 ml 1X ONCE 08/02/16 09:30 08/02/16 09:31 DC 08/02/16 09:26 15 ML Multivitamins/ Minerals/Folic Acid/Thiamine HCl/ Dextrose/Lactated Ringer's (Infuvite Adult/ Iv D5%-Lr) 1,011.2 ml @ 1,000 mls/ hr 1X ONCE 08/02/16 09:30 08/02/16 10:30 DC 08/02/16 09:23 1,000 MLS/HR Ondansetron HCl (Zofran) 4 mg PRN Q8HRS PRN 08/02/16 09:15 08/03/16 09:14 Allergies Allergies Allergies Coded Allergies Type Severity Reaction Last Updated Verified No Known Drug Allergies 01/26/16 No ROS Review of System CONSTITUTIONAL: No fever or chills EYES: No recent changes SKIN: No rash or itching CARDIOVASCULAR: No chest pain, syncope, palpitations, or edema RESPIRATORY: No SOB or cough GASTROINTESTINAL: No nausea, vomiting or abdominal pain NEUROLOGICAL: No headaches or weakness ENDOCRINE: No cold or heat intolerance GENITOURINARY: No urgency or frequency of urination MUSCULOSKELETAL: No back pain or joint pain LYMPHATICS: No enlarged lymph nodes PSYCHIATRIC: seizures. Physical Exam Physical Exam GEN.: No apparent distress. Alert and oriented. HEENT: Head is normocephalic, atraumatic NECK: Supple. no jvd LUNGS: Clear to auscultation. normal flow HEART: RRR, S1, S2 present. Peripheral pulses intact ABDOMEN: Soft, nontender. Positive bowel sounds. EXTREMITIES: Without any cyanosis. NEUROLOGIC: Normal speech, normal tone PSYCHIATRIC: Normal affect, normal mood. SKIN: No ulcerations Vitals Vitals Vital Signs Date Time Temp Pulse Resp B/P Pulse Ox O2 Delivery O2 Flow Rate FiO2 08/02/16 11:19 97.5 88 16 146/103 98 97.5 08/02/16 08:34 Room Air Labs Labs Laboratory Tests Test 08/02/16 09:04 08/02/16 09:05 08/02/16 09:15 Sodium Level 145mmol/L (136-145) Potassium Level 3.7mmol/L (3.5-5.1) Chloride Level 108mmol/L (98-107) Carbon Dioxide Level 25mmol/L (21-32) Anion Gap 12 (6-14) Blood Urea Nitrogen 9mg/dL (8-26) Creatinine 0.8mg/dL (0.7-1.3) Estimated GFR (Cockcroft-Gault) 113.5 Glucose Level 117mg/dL (70-99) Calcium Level 8.6mg/dL (8.5-10.1) Total Bilirubin 0.2mg/dL (0.2-1.0) Direct Bilirubin < 0.1mg/dL (0.0-0.2) Aspartate Amino Transf (AST/SGOT) 43U/L (15-37) Alanine Aminotransferase (ALT/SGPT) 43U/L (16-63) Alkaline Phosphatase 111U/L (46-116) Total Protein 7.2g/dL (6.4-8.2) Albumin 3.6g/dL (3.4-5.0) Lipase 132U/L (73-393) White Blood Count 4.8x10^3/uL (4.0-11.0) Red Blood Count 5.21x10^6/uL (4.30-5.70) Hemoglobin 13.3g/dL (13.0-17.5) Hematocrit 40.6% (39.0-53.0) Mean Corpuscular Volume 78fL (79-100) Mean Corpuscular Hemoglobin 25pg (25-35) Mean Corpuscular Hemoglobin Concent 33g/dL (31-37) Red Cell Distribution Width 20.5% (11.5-14.5) Platelet Count 385x10^3/uL (140-400) Neutrophils (%) (Auto) 44% (31-73) Lymphocytes (%) (Auto) 39% (24-48) Monocytes (%) (Auto) 12% (0-9) Eosinophils (%) (Auto) 4% (0-3) Basophils (%) (Auto) 2% (0-3) Neutrophils # (Auto) 2.1x10^3uL (1.8-7.7) Lymphocytes # (Auto) 1.9x10^3/uL (1.0-4.8) Monocytes # (Auto) 0.6x10^3/uL (0.0-1.1) Eosinophils # (Auto) 0.2x10^3/uL (0.0-0.7) Basophils # (Auto) 0.1x10^3/uL (0.0-0.2) Platelet Estimate Adequate (ADEQUATE) Large Platelets Present Anisocytosis Mod Serum Osmolality 358mOsm/Kg (279-304) Salicylates Level < 2.8mg/dL (2.8-20.0) Salicylate Last Dose Date Salicylate Last Dose Time Acetaminophen Level < 2mcg/ml (10-30) Acetaminophen Last Dose Date Acetaminophen Last Dose Time Ethyl Alcohol Level 250mg/dL (0-10) Urine Collection Type Unknown Urine Color Yellow Urine Clarity Clear Urine pH 6.0 Urine Specific [place] 1.010 Urine Protein Negativemg/dL (NEG-TRACE) Urine Glucose (UA) Negativemg/dL (NEG) Urine Ketones (Stick) Negativemg/dL (NEG) Urine Blood Negative (NEG) Urine Nitrite Negative (NEG) Urine Bilirubin Negative (NEG) Urine Urobilinogen Dipstick 0.2mg/dL (0.2 mg/dL) Urine Leukocyte Esterase Negative (NEG) Urine RBC 0/HPF (0-2) Urine WBC 0/HPF (0-4) Urine Squamous Epithelial Cells Occ/LPF Urine Bacteria 0/HPF (0-FEW) Urine Opiates Screen Neg (NEG) Urine Methadone Screen Neg (NEG) Urine Barbiturates Neg (NEG) Urine Phencyclidine Screen Neg (NEG) Urine Amphetamine/Methamphetamine Neg (NEG) Urine Benzodiazepines Screen Neg (NEG) Urine Cocaine Screen Neg (NEG) Urine Cannabinoids Screen Neg (NEG) Urine Ethyl Alcohol Pos (NEG) Laboratory Tests Test 08/02/16 09:04 08/02/16 09:05 08/02/16 09:15 Sodium Level 145mmol/L (136-145) Potassium Level 3.7mmol/L (3.5-5.1) Chloride Level 108mmol/L (98-107) Carbon Dioxide Level 25mmol/L (21-32) Anion Gap 12 (6-14) Blood Urea Nitrogen 9mg/dL (8-26) Creatinine 0.8mg/dL (0.7-1.3) Estimated GFR (Cockcroft-Gault) 113.5 Glucose Level 117mg/dL (70-99) Calcium Level 8.6mg/dL (8.5-10.1) Total Bilirubin 0.2mg/dL (0.2-1.0) Direct Bilirubin < 0.1mg/dL (0.0-0.2) Aspartate Amino Transf (AST/SGOT) 43U/L (15-37) Alanine Aminotransferase (ALT/SGPT) 43U/L (16-63) Alkaline Phosphatase 111U/L (46-116) Total Protein 7.2g/dL (6.4-8.2) Albumin 3.6g/dL (3.4-5.0) Lipase 132U/L (73-393) White Blood Count 4.8x10^3/uL (4.0-11.0) Red Blood Count 5.21x10^6/uL (4.30-5.70) Hemoglobin 13.3g/dL (13.0-17.5) Hematocrit 40.6% (39.0-53.0) Mean Corpuscular Volume 78fL (79-100) Mean Corpuscular Hemoglobin 25pg (25-35) Mean Corpuscular Hemoglobin Concent 33g/dL (31-37) Red Cell Distribution Width 20.5% (11.5-14.5) Platelet Count 385x10^3/uL (140-400) Neutrophils (%) (Auto) 44% (31-73) Lymphocytes (%) (Auto) 39% (24-48) Monocytes (%) (Auto) 12% (0-9) Eosinophils (%) (Auto) 4% (0-3) Basophils (%) (Auto) 2% (0-3) Neutrophils # (Auto) 2.1x10^3uL (1.8-7.7) Lymphocytes # (Auto) 1.9x10^3/uL (1.0-4.8) Monocytes # (Auto) 0.6x10^3/uL (0.0-1.1) Eosinophils # (Auto) 0.2x10^3/uL (0.0-0.7) Basophils # (Auto) 0.1x10^3/uL (0.0-0.2) Platelet Estimate Adequate (ADEQUATE) Large Platelets Present Anisocytosis Mod Serum Osmolality 358mOsm/Kg (279-304) Salicylates Level < 2.8mg/dL (2.8-20.0) Salicylate Last Dose Date Salicylate Last Dose Time Acetaminophen Level < 2mcg/ml (10-30) Acetaminophen Last Dose Date Acetaminophen Last Dose Time Ethyl Alcohol Level 250mg/dL (0-10) Urine Collection Type Unknown Urine Color Yellow Urine Clarity Clear Urine pH 6.0 Urine Specific [place] 1.010 Urine Protein Negativemg/dL (NEG-TRACE) Urine Glucose (UA) Negativemg/dL (NEG) Urine Ketones (Stick) Negativemg/dL (NEG) Urine Blood Negative (NEG) Urine Nitrite Negative (NEG) Urine Bilirubin Negative (NEG) Urine Urobilinogen Dipstick 0.2mg/dL (0.2 mg/dL) Urine Leukocyte Esterase Negative (NEG) Urine RBC 0/HPF (0-2) Urine WBC 0/HPF (0-4) Urine Squamous Epithelial Cells Occ/LPF Urine Bacteria 0/HPF (0-FEW) Urine Opiates Screen Neg (NEG) Urine Methadone Screen Neg (NEG) Urine Barbiturates Neg (NEG) Urine Phencyclidine Screen Neg (NEG) Urine Amphetamine/Methamphetamine Neg (NEG) Urine Benzodiazepines Screen Neg (NEG) Urine Cocaine Screen Neg (NEG) Urine Cannabinoids Screen Neg (NEG) Urine Ethyl Alcohol Pos (NEG) VTE Prophylaxis Ordered VTE Prophylaxis Devices: No VTE Pharmacological Prophylaxi: No ARELIS RODRIGUEZ MD Aug 02, 2016 12:43
[2016-08-02] MEDS ORDERED: HALOPERIDOL LACT 5 MG/ML VIAL. IVP PRN (12:45)
[2016-08-02] MEDS ORDERED: CLONIDINE HCL 0.1 MG TABLET PO PRN (12:45)
[2016-08-02] MEDS ORDERED: DIPHENHYDRAMINE 50 MG/ML VIAL IVP PRN (12:45)
[2016-08-02] MEDS ORDERED: LORAZEPAM 2 MG/ML VIAL IV PRN ×2 (12:45)
[2016-08-02] MEDS ORDERED: OMEP40CA5 PO (13:43)
[2016-08-02 15:27] VITALS: BP 132/85
[2016-08-02] MEDS: PANTOPRAZOLE 40 MG TABLET. PO SCH (15:48)
[2016-08-02 19:30] VITALS: BP 147/106
--- NOTE | 2016-08-02 21:15 | ACF ---
Admission Forms Criteria ALCOHOL AND PSYCHOACTIVE SUBSTANCE WITHDRAWAL Clinical Indications for Inpatient Care (Place ' X' for any and all applicable criteria): Ongoing inpatient care may be indicated for substance withdrawal[B][C] with ANY ONE of the following(1)(2)(3)(4)(21): [ ]I. Delirium due to alcohol or sedative[D] withdrawal is present. [ ]II. Marked signs of withdrawal are present as indicated by ANY ONE of the following(15)(22)(23) [ ]a) Heart rate greater than 120 beats per minute is present. [ ]b) Severe vomiting is present (eg, precludes maintenance of oral hydration). [ ]c) Grossly visible tremor is present. [ ]d) Profuse perspiration is present. [ ]e) Temperature greater than 101 degrees F (38.3 degrees C) is present. [ ]f) Other signs of severe withdrawal are present (eg, Altered mental status ) [ ]g) Severe withdrawal identified by standardized assessment score[A] [ ]III. Signs of withdrawal that require continued inpatient treatment as indicated by ANY ONE of the following(15)(22)(23): [ ]a) Inadequate response to pharmacotherapy (eg, benzodiazepines) [ ]b) Outpatient or lower level of care is not feasible or appropriate (eg, unavailable or inappropriate to patient condition or treatment history). [X]IV. Withdrawal signs with high-risk indicator are present as manifested by ALL of the following[A](15)(22)(23) [X]a) Signs of withdrawal are present as indicated by ANY ONE of the following: [ ]i. Tachycardia is present. [ ]ii. Nausea or vomiting is present. [ ]iii. Tremor is present. [ ]iv. Increased perspiration is present. [ ]v. Other signs of withdrawal are present. [X]vi. Withdrawal identified by standardized assessment score [A] [X]b) Elevated risk due to historical or comorbid factor is present as indicated by ANY ONE of the following: [ ]i. History of delirium due to withdrawal is present. [X]ii. History of seizures due to withdrawal is present.[E] [ ]iii. Intrinsic seizure disorder (epilepsy) is present. [ ]iv. Patient is . [ ]v. Other significant medical history (eg, severe cardiac disease) is present, which is assessed to be at risk for destabilization due to withdrawal. [ ]V. Serious electrolyte abnormalities (eg, hyponatremia, hypokalemia, hypophosphatemia) requiring correction performable only in inpatient setting(6)(25) [ ]. Severe hypoglycemia requiring glucose infusions performable only in inpatient setting(6) [ ]VII. Drug toxicity or instability, such as Altered mental status, respiratory depression, or arrhythmias, that requires inpatient care [ ]VIII. Danger judged unmanageable at lower level of care because of ANY ONE of the following [ ]a) Danger to self [ ]b) Danger to others [ ]c) Grave disability (eg, inability to perform self-care necessary at lower level of care) The original [facility] content created by [facility] has been revised. The portions of the content which have been revised are identified through the use of italic text or in bold. [facility] has neither reviewed nor approved the modified material. All other unmodified content is copyright [facility]. Please see references footnoted in the original [facility] Admission Criteria Met?: Yes ORESTES HAN Aug 02, 2016 21:15
[2016-08-02 23:25] VITALS: BP 141/100
[2016-08-03 03:06] VITALS: BP 137/87
[2016-08-03] MEDS: LORAZEPAM 1 MG TABLET. PO SCH ×3 (03:32→15:45)
[2016-08-03 05:13] LABS: BASO # 0.1 x10^3/uL (0.0-0.2); BASO % 1 % (0-3); EOS % 2 % (0-3); HEMATOCRIT 40.2 % (39.0-53.0); HEMOGLOBIN 12.9 g/dL (13.0-17.5); LYMPH # 1.7 x10^3/uL (1.0-4.8); LYMPH % 24 % (24-48); MEAN CORPUSCULAR HEMOGLOBIN 25 pg (25-35); MEAN CORPUSCULAR HGB CONC 32 g/dL (31-37); MEAN CORPUSCULAR VOLUME 79 fL (79-100); MONO % 10 % (0-9); NEUT % 62 % (31-73); PLATELET COUNT 337 x10^3/uL (140-400); RED BLOOD COUNT 5.08 x10^6/uL (4.30-5.70); RED CELL DISTRIBUTION WIDTH 19.9 % (11.5-14.5)
[2016-08-03 05:19] LABS: CALCIUM 9.1 mg/dL (8.5-10.1); CREATININE 0.8 mg/dL (0.7-1.3); GFR 113.5
--- NOTE | 2016-08-03 06:10 | HP ---
ADMIT DATE: 08/02/2016 CHIEF COMPLAINT: Alcohol withdrawal. HISTORY OF PRESENT ILLNESS: A 31-year-old male patient presented to the ER with complaints of seizure-type activity 6 hours prior to the arrival, and also he would like to stop drinking alcohol and wants to be admitted into rehab facility. He states he was drinking nearly 2 L of vodka every day and has been drinking for a long time, and also he tried rehab in the past. However, it was not successful. 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 PAST MEDICAL HISTORY: 1. Alcoholism. 2. GERD. 3. ____. 4. [place]arez esophagus ____. 5. ____ heavy alcohol ____ benzodiazepine, cocaine, heroin, marijuana, methamphetamines and opiates. PAST SURGICAL HISTORY: 1. Hemorrhoidectomy. 2. Left ankle surgery. FAMILY HISTORY: No sudden cardiac . No seizure-like activity. ALLERGIES: NKDA. REVIEW OF SYSTEMS AND PHYSICAL EXAMINATION: Please see my electronic H and P. LABORATORY FINDINGS: WBC 4.8, hemoglobin 13.3, MCV 78, and platelets 385. Chemistry: Sodium 145, potassium 3.7, and chloride is 108, carbon dioxide 25, anion gap is 12, BUN is 9, creatinine 0.8, and glucose 117. Toxicology: Salsalate less than 2.8. Opioids negative. Methadone negative. Urine ethyl alcohol positive. Ethyl alcohol 250. Urine pH is 6. ____. Protein negative, ketones negative, and nitrites negative. IMAGING STUDIES: Not done. ASSESSMENT: 1. Acute alcohol intoxication with alcohol-withdrawal seizures. 2. Substance abuse ____. 3. Mc esophagus. PLAN: 1. The patient was admitted for alcohol withdrawal and alcohol-withdrawal seizures. At this time, he was started on multivitamin supplements ____ has been started on IV Ativan to prevent any withdrawals. He was initiated on CIWA protocol and also he received GI cocktail twice. Symptoms are getting better. 2. Continue Protonix b.i.d. twice a day. 3. P.r.n. clonidine for hypertension. 4. ____ seizure precautions and fall precautions. 5. Physical therapy and occupation therapy. 6. 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 Anticipated discharge on either Friday or Huyen. ARELIS RODRIGUEZ MD DR: Kaiden JOB#: [id number] / [id number]
[2016-08-03 07:20] VITALS: BP 145/92
[2016-08-03] MEDS: PANTOPRAZOLE 40 MG TABLET. PO SCH (08:21)
[2016-08-03] MEDS ORDERED: MVI, ADULT NO.4 WITH VIT K 10 ML, THIAMINE 100 MG, FOLIC ACID 1 MG in IV NORMAL SALINE ... IV SCH ×4 (09:00)
[2016-08-03 11:54] VITALS: BP 147/104
[2016-08-03 14:46] VITALS: BP 161/103
--- NOTE | 2016-08-05 23:05 | DS ---
DATE OF DISCHARGE: 08/03/2016 CHIEF COMPLAINT: Alcohol intoxication. HOSPITAL COURSE: The patient is a 31-year-old gentleman with known alcohol dependence, who presented to the Emergency Room after significant drinking in the past few days and complains of seizure-like activities about 6 hours prior to arrival. He has a history of binge drinking and wants to himself out before returning back to [place]. He was admitted, was fairly stable. However, he insisted on being discharged the following day as he felt completely stable. He was willing to sign out AMA, but in discussion with him a prescription of Librium was given, so he would not undergo withdrawal symptoms in the next few days. He was agreeable to the plan. DISCHARGE PHYSICAL EXAMINATION: VITAL SIGNS: Stable. He was afebrile. GENERAL: He is alert and oriented, in no acute distress. NEUROLOGIC: Clear thinking without any tremors. LUNGS: Clear. HEART: Regular rate and rhythm. ABDOMEN: Has positive bowel sounds, soft, nontender. EXTREMITIES: Show no edema. DISCHARGE DISPOSITION: To home. DISCHARGE CONDITION: Stable. DISCHARGE DIAGNOSIS: Alcohol intoxication. DISCHARGE MEDICATIONS: Please refer to MAR. DISCHARGE INSTRUCTIONS: The patient will follow up with his PCP once returned home to [place]. DAVION NORRIS MD DR: KATHARINE/nts JOB#: [id number] / [id number]
== END 2016-08-03 18:22 | disposition home or self-care (01) | DRG 897 ==
LOC: ER 08:16 → 6 SOUTH 09:22
PROVIDERS: ADMIT Internal Medicine; ATTEND Internal Medicine
DX: F10.239 Alcohol dependence with withdrawal, unspecified (principal); R56.9 Unspecified convulsions; Y90.9 Presence of alcohol in blood, level not specified; K21.9 Gastro-esophageal reflux disease without esophagitis; K22.70 Barrett's esophagus without dysplasia; J45.909 Unspecified asthma, uncomplicated; Z86.73 Personal history of transient ischemic attack (TIA), and cerebral infarction without residual deficits; Z87.11 Personal history of peptic ulcer disease; Z82.49 Family history of ischemic heart disease and other diseases of the circulatory system; Z79.899 Other long term (current) drug therapy
CPT/HCPCS: 36415; 80048; 80076; 81001; 83690; 83930; 85007; 85027; 96365; G0480; G0481; G6038; J2060; J7030; 80196; 99285-25